=== PATIENT | male | born 1970 | race Hispanic/Latino ===

== ENCOUNTER 2016-07-17 02:49 | Emergency (ER) | payer SELFPAY ==
[2016-07-17 03:15] VITALS: BP 103/47
--- NOTE | 2016-07-17 03:58 | Emergency Department Report ---
ED Chest Pain HPI - General Chief Complaint: Dyspnea/Respdistress Stated Complaint: CHEST PAIN, DIFFICULTY IN BREATHING Time Seen by Provider: 07/17/16 03:08 Source: patient, EMS Mode of arrival: Stretcher Limitations: No Limitations - History of Present Illness Initial Comments: 46-year-old male with a past medical history of obesity, bipolar, and hypertension presents to the hospital complaining of chest pain this a.m. Pain started about 1:00 AM where he complained of chest tightness with associated shortness of breath.] The bedside reports that while waiting for ambulance to arrive patient seemed to be going on and out of consciousness. So she left arm discomfort reported. No reports of fever, wheezing, nausea, vomiting, or diaphoresis. Patient received aspirin and 2.5 albuterol in route. Patient reports that nonrebreather oxygen helps him feel better. Positive smoking. Denies previous cardiac workup. PMD: None Severity scale (0 -10): 5 - Related Data Home Medications Medication Instructions Recorded Confirmed Last Taken Atenolol [Tenormin] 100 mg PO DAILY 07/17/16 07/17/16 07/16/16 Citalopram [celeXA] 40 mg PO PRN 07/17/16 07/17/16 07/16/16 Allergies Allergy/AdvReac Type Severity Reaction Status Date / Time No Known Allergies Allergy Unverified 07/17/16 03:05 KRISTYN score - Kristyn Score Age > 65: (0) No Aspirin use within the Past 7 Days: (0) No 3 or more CAD Risk Factors: (0) No 2 or more Angina events in past 24 hrs: (1) Yes Known CAD with more than 50% Stenosis: (0) No Elevated Cardiac Markers: (0) No ST Deviation Greater than 0.5mm: (0) No KRISTYN Score: 1 ED Review of Systems ROS: Stated complaint: CHEST PAIN, DIFFICULTY IN BREATHING Other details as noted in HPI Comment: All other systems reviewed and negative Other: Constitutional: No fevers chills Eyes: No eye pain visual changes ENT: No ear pain or throat pain Neck: Denies pain Respiratory: Denies cough wheezing Cardiovascular: Denies palpitations GI: Denies abdominal pain, nausea, vomiting, diarrhea : Denies dysuria, urinary frequency, or urgency Musculoskeletal: Denies back pain, joint swelling Skin: Denies rash, lesions, erythema Neurologic: Denies headache, numbness, weakness Psychiatric: Denies suicidal ideation, hallucinations ED Past Medical Hx - Past Medical History Hx Hypertension: Yes Hx Psychiatric Treatment: Yes Additional medical history: Bipolar - Social History Smoking Status: Current Every Day Smoker Substance Use Type: None - Medications Home Medications: Home Medications Medication Instructions Recorded Confirmed Last Taken Type Atenolol [Tenormin] 100 mg PO DAILY 07/17/16 07/17/16 07/16/16 History Citalopram [celeXA] 40 mg PO PRN 07/17/16 07/17/16 07/16/16 History ED Physical Exam - General Limitations: No Limitations - Other Other exam information: General: No limitations, patient is alert in no acute distress Head exam: Atraumatic, normocephalic Eyes exam: Normal appearance, pupils equal reactive to light, extraocular movements intact ENT: Moist mucous membrane, normal oropharynx Neck exam: Normal inspection, full range of motion, no meningismus nontender Respiratory exam: Clear to auscultation bilateral, no wheezes, rales, crackles Cardiovascular: Normal rate and rhythm, normal heart sounds, mild lower sternal chest wall tenderness Abdomen: Soft, nondistended, and nontender, with normal bowel sounds, no rebound, or guarding Extremity: Full range of motion normal inspection no deformity, no calf tenderness or edema Back: Normal Inspection, full range of motion, no tenderness Neurologic: Alert, oriented x3, cranial nerves intact, no motor or sensory deficit Psychiatric: normal affect, normal mood Skin: Warm, dry, intact ED Course Vital Signs 07/17/16 07/17/16 03:05 03:14 Temperature 98.7 F Pulse Rate 98 H Respiratory 22 22 Rate Blood Pressure 103/47 [Left] O2 Sat by Pulse 100 100 Oximetry - Reevaluation(s) Reevaluation #1: 07/17/16 06:13 pt stable in ed Reevaluation #2: 07/17/16 06:14 received po K prior to leaving ED Medical Decision Making - Lab Data Result diagrams: 07/17/16 03:58 07/17/16 03:58 Lab Results 07/17/16 07/17/16 07/17/16 Range/Units 03:52 03:52 03:58 WBC (4.5-11.0) K/mm3 RBC (3.65-5.03) M/mm3 Hgb (11.8-15.2) gm/dl Hct (35.5-45.6) % MCV (84-94) fl MCH (28-32) pg MCHC (32-34) % RDW (13.2-15.2) % Plt Count (140-440) K/mm3 Lymph % (Auto) (13.4-35.0) % [place] % (Auto) (0.0-7.3) % Eos % (Auto) (0.0-4.3) % Baso % (Auto) (0.0-1.8) % Lymph # (1.2-5.4) K/mm3 [place] # (0.0-0.8) K/mm3 Eos # (0.0-0.4) K/mm3 Baso # (0.0-0.1) K/mm3 Seg Neutrophils % (40.0-70.0) % Seg Neutrophils # (1.8-7.7) K/mm3 PT (12.2-14.9) Sec. INR (0.87-1.13) D-Dimer (0-234) ng/mlDDU Sodium 134 L (137-145) mmol/L Potassium 3.1 L (3.6-5.0) mmol/L Chloride 91.7 L (98-107) mmol/L Carbon Dioxide 24 (22-30) mmol/L Anion Gap 21 mmol/L BUN 14 (9-20) mg/dL Creatinine 0.9 (0.8-1.5) mg/dL Estimated GFR > 60 ml/min BUN/Creatinine Ratio 15.55 % Glucose 119 H (75-100) mg/dL Calcium 9.3 (8.4-10.2) mg/dL Magnesium 1.9 (1.7-2.3) mg/dL Total Creatine Kinase 83 (55-170) units/L CK-MB (CK-2) 2.3 (0.0-4.0) ng/mL CK-MB (CK-2) Rel Index 2.7 (0-4) Troponin T < 0.010 (0.00-0.029) ng/mL NT-Pro-B Natriuret Pep 48.74 (0-450) pg/mL 07/17/16 07/17/16 Range/Units 03:58 03:58 WBC 9.6 (4.5-11.0) K/mm3 RBC 3.95 (3.65-5.03) M/mm3 Hgb 15.9 H (11.8-15.2) gm/dl Hct 44.9 (35.5-45.6) % MCV 114 H (84-94) fl MCH 40 H (28-32) pg MCHC 36 H (32-34) % RDW 13.3 (13.2-15.2) % Plt Count 129 L (140-440) K/mm3 Lymph % (Auto) 35.1 H (13.4-35.0) % [place] % (Auto) 9.7 H (0.0-7.3) % Eos % (Auto) 3.1 (0.0-4.3) % Baso % (Auto) 0.7 (0.0-1.8) % Lymph # 3.4 (1.2-5.4) K/mm3 [place] # 0.9 H (0.0-0.8) K/mm3 Eos # 0.3 (0.0-0.4) K/mm3 Baso # 0.1 (0.0-0.1) K/mm3 Seg Neutrophils % 51.4 (40.0-70.0) % Seg Neutrophils # 4.9 (1.8-7.7) K/mm3 PT 13.4 (12.2-14.9) Sec. INR 1.03 (0.87-1.13) D-Dimer 321.21 H (0-234) ng/mlDDU Sodium (137-145) mmol/L Potassium (3.6-5.0) mmol/L Chloride (98-107) mmol/L Carbon Dioxide (22-30) mmol/L Anion Gap mmol/L BUN (9-20) mg/dL Creatinine (0.8-1.5) mg/dL Estimated GFR ml/min BUN/Creatinine Ratio % Glucose (75-100) mg/dL Calcium (8.4-10.2) mg/dL Magnesium (1.7-2.3) mg/dL Total Creatine Kinase (55-170) units/L CK-MB (CK-2) (0.0-4.0) ng/mL CK-MB (CK-2) Rel Index (0-4) Troponin T (0.00-0.029) ng/mL NT-Pro-B Natriuret Pep (0-450) pg/mL - EKG Data -: EKG Interpreted by Me (sinus rhythm rate 62 posterior infarct age indeterminate) - EKG Data When compared to previous EKG there are: previous EKG unavailable - Radiology Data Radiology results: image reviewed (chest x-ray PA and lateral: No acute finding) - Medical Decision Making I informed the patient the plan was to admit him to the hospital for further cardiac workup. D-dimer was elevated. While in CT scanner it stopped working. Patient apparently got angry and stated that if the scan that the scanner worked for nigger but not for him. Then he returned to the ed and stormed out with his son. - Differential Diagnosis [place], unstable angina, PE, bronchitis Critical Care Time: No Critical care attestation.: If time is entered above; I have spent that time in minutes in the direct care of this critically ill patient, excluding procedure time. ED Disposition Clinical Impression: Chest pain, Dyspnea, Hypokalemia, Elevated d-dimer Disposition: ELOPED Is pt being admited?: No Condition: Stable Time of Disposition: 06:05 (left the department)
[2016-07-17 04:09] LABS: Basophils % (Auto) 0.7 % (0.0-1.8); Eosinophils % (Auto) 3.1 % (0.0-4.3); Hematocrit 44.9 % (35.5-45.6); Hemoglobin 15.9 gm/dl (11.8-15.2); Mean Corpuscular HGB Conc 36 % (32-34); Mean Corpuscular Hemoglobin 40 pg (28-32); Mean Corpuscular Volume 114 fl (84-94); Red Blood Count 3.95 M/mm3 (3.65-5.03); Red Cell Distribution Width 13.3 % (13.2-15.2); White Blood Count 9.6 K/mm3 (4.5-11.0)
[2016-07-17 04:12] LABS: Platelet Count 129 K/mm3 (140-440)
[2016-07-17 04:18] LABS: INR 1.03 (0.87-1.13)
[2016-07-17 04:22] LABS: BUN/Creatinine Ratio 15.55; Blood Urea Nitrogen 14 mg/dL (9-20); Calcium 9.3 mg/dL (8.4-10.2); Carbon Dioxide 24 mmol/L (22-30); Chloride 91.7 mmol/L (98-107); Glucose 119 mg/dL (75-100); Potassium 3.1 mmol/L (3.6-5.0); Sodium 134 mmol/L (137-145)
[2016-07-17 04:23] LABS: Creatine Kinase MB 2.3 ng/mL (0.0-4.0)
[2016-07-17 04:25] LABS: Anion Gap 21 mmol/L
[2016-07-17] MEDS ORDERED: K-DUR PO ONE (04:26)
--- NOTE | 2016-07-17 07:30 | XRay Report ---
ROUTINE CHEST, TWO VIEWS: HISTORY: Short of breath. No comparison. Heart size and pulmonary venous structures are at the upper limits of normal. The lungs are clear. No evidence for pneumonia, CHF or pneumothorax. The thoracic cage is intact. IMPRESSION: Borderline heart size and pulmonary vascular congestion. No CHF.
== END 2016-07-17 06:22 | disposition left against medical advice (07) ==
LOC: ED 02:49
DX: E87.6 Hypokalemia (principal); R79.1 Abnormal coagulation profile; R07.9 Chest pain, unspecified; R06.00 Dyspnea, unspecified; I10 Essential (primary) hypertension; F31.9 Bipolar disorder, unspecified; F17.200 Nicotine dependence, unspecified, uncomplicated
CPT/HCPCS: 36415; 71020; 80048; 82550; 82553; 83735; 83880; 84484; 85025; 85379; 85610; 93005; 93010

== ENCOUNTER 2019-05-28 16:34 | Emergency (ER) | payer SELFPAY ==
[2019-05-28] MEDS ORDERED: HALOPERIDOL LACTATE 5 MG/1 ML INJ IM PRN (17:15)
[2019-05-28] MEDS ORDERED: LORazepam 2 MG/ML VIAL IM PRN (17:15)
--- NOTE | 2019-05-28 17:16 | Emergency Department Report ---
<JEREMY HERR - Last Filed: 05/28/19 23:23> ED General Adult HPI - General Chief complaint: Psych Stated complaint: SI Time Seen by Provider: 05/28/19 17:00 Source: patient, family, EMS ( EMS documentation not available at time of chart dictation ), RN notes reviewed Mode of arrival: Stretcher Limitations: No Limitations - History of Present Illness Initial comments: This is a 48-year-old gentleman. This patient is not known to this provider previously. He is accompanied by his son who provides some collateral informa tion. He does not have a primary care doctor. Apparently an outpatient physician at the [facility] had prescribed him some outpatient Celexa. He appears to have a history of chronic pain and hydroadenitis , although, he did not know that he had hidradenitis. He is brought to the hospital by emergency medical services for overdose. Apparently his son contacted 911 because the patient reportedly took 10-12 tablets of Celexa, at, around 3:30 PM. The patient denies other ingestions. He endorses chronic pain but indicates that he has no new or different pain. He indicates no hallucinations. He states that he took the medicine to help control his chronic back pain. -: Sudden, hour(s) Improves with: none Worsens with: none - Related Data Home Medications Medication Instructions Recorded Confirmed Last Taken Atenolol [Tenormin] 100 mg PO DAILY 07/17/16 05/28/19 07/16/16 Citalopram [celeXA] 40 mg PO PRN 07/17/16 05/28/19 07/16/16 Chlorthalidone [Thalitone] 25 mg PO QDAY 05/28/19 05/28/19 Unknown Allergies Allergy/AdvReac Type Severity Reaction Status Date / Time No Known Allergies Allergy Unverified 07/17/16 03:05 ED Review of Systems Constitutional: denies: fever Cardiovascular: denies: syncope Gastrointestinal: denies: vomiting Genitourinary: denies: dysuria Musculoskeletal: back pain Skin: lesions Psychiatric: denies: auditory hallucinations, visual hallucinations, homicidal thoughts ED Past Medical Hx - Past Medical History Hx Hypertension: Yes Hx Psychiatric Treatment: Yes (depression, anxiety) Additional medical history: Bipolar, chronic back pain - Surgical History Additional Surgical History: back - Social History Smoking Status: Current Every Day Smoker Substance Use Type: Alcohol, Marijuana - Medications Home Medications: Home Medications Medication Instructions Recorded Confirmed Last Taken Type Atenolol [Tenormin] 100 mg PO DAILY 07/17/16 05/28/19 07/16/16 History Citalopram [celeXA] 40 mg PO PRN 07/17/16 05/28/19 07/16/16 History Chlorthalidone [Thalitone] 25 mg PO QDAY 05/28/19 05/28/19 Unknown History ED Physical Exam - General Limitations: No Limitations General appearance: alert, anxious, obese - Head Head exam: Present: atraumatic, normocephalic - Eye Eye exam: Present: normal appearance, PERRL, EOMI. Absent: nystagmus - ENT ENT exam: Present: normal exam, normal orophraynx, mucous membranes moist, normal external ear exam - Neck Neck exam: Present: normal inspection, full ROM. Absent: tenderness, meningismus - Respiratory Respiratory exam: Present: normal lung sounds bilaterally. Absent: respiratory distress - Cardiovascular Cardiovascular Exam: Present: regular rate, normal rhythm, normal heart sounds. Absent: bradycardia, tachycardia, irregular rhythm, systolic murmur, diastolic murmur, rubs, gallop - GI/Abdominal GI/Abdominal exam: Present: soft. Absent: distended, tenderness, guarding, rebound, rigid - Rectal Rectal exam: Present: deferred - Extremities Exam Extremities exam: Present: full ROM (numerous chronic-appearing lesions noted on the anterior abdominal wall, upper and lower extremities, consistent with chronic hidradenitis. There is no pus, streaking or discharge at this time.), other (2+ pulses noted in the bilateral upper, lower extremities. There is no long bone tenderness. Musculoskeletal compartments are soft. The pelvis is st able.). Absent: tenderness, calf tenderness - Back Exam Back exam: Present: normal inspection, full ROM. Absent: tenderness, CVA tenderness (R), CVA tenderness (L), paraspinal tenderness, vertebral tenderness - Neurological Exam Neurological exam: Present: alert, other (there is no facial droop. The tongue is midline. Extraocular movements are intact bilaterally. Patient speaking in full complete sentences. Shoulder shrug is intact bilaterally. Hearing is grossly intact bilaterally. Visual acuity intact to finger counting and color perception at a close distance. 5/5 strength 4 extremities. Sensation intact to light touch in 4 extremities.). Absent: motor sensory deficit - Psychiatric Psychiatric exam: Present: anxious - Skin Skin exam: Present: warm, dry, intact, normal color ED Course - Reevaluation(s) Reevaluation #1: 05/28/19 18:42 Differential diagnosis, including but not limited to: Overdose, mood disorder, suicidality, medical clearance for psychiatric placement Assessment and plan: 48-year-old gentleman who presents more than one hour after overdose, therefore, not a charcoal candidate. He endorses chronic medical pain, but otherwise, does not endorse any new, worsened or different symptoms. Screening laboratory studies are reviewed and appreciated. EKG is pending at this time. teletypesetter monitor ordered, 1013 ordered, psychiatric consultation requested, we will discuss with the [place] [facility]. We will observe the patient in the emergency room. Anticipate medical clearance for psychiatric placement. He can follow-up with an outpatient primary care doctor for chronic hidradenitis, and chronic back pain. These entities do not represent an emergency medical conditions. Reevaluation #2: 05/28/19 18:59 Contacted making at the [place] [facility]. Advises that activated charcoal may be given within 4 hours of Celexa ingestion. Recommends that of charcoal is given, 8 hours of observation, if charcoal not given, minimum 11 hours observation. Also recommended supportive care which we have anticipated. Patient will be ordered for charcoal, he'll be placed on a security monitor, repeat EKG also ordered, to assess for intervals. 05/28/19 19:00 Reevaluation #3: 05/28/19 23:23 Patient observed for about 7 hours and department without clinical decompensation. Repeat EKG appears to be unremarkable. Patient has had acute on chronic back pain, therefore, ordered for pain medication. He has one hour left in period Of observation. No arrhythmias noted. ED Medical Decision Making - Lab Data Result diagrams: 05/28/19 17:27 05/28/19 17:27 Vital Signs 05/28/19 17:36 Temperature 97.9 F Pulse Rate 66 Respiratory 18 Rate Blood Pressure 139/94 [Right] O2 Sat by Pulse 96 Oximetry Lab Results 05/28/19 05/28/19 05/28/19 Range/Units 17:27 17:27 17:27 WBC 12.3 H (4.5-11.0) K/mm3 RBC 3.84 (3.65-5.03) M/mm3 Hgb 15.4 H (11.8-15.2) gm/dl Hct 41.5 (35.5-45.6) % MCV 108 H (84-94) fl MCH 40 H (28-32) pg MCHC 37 H (32-34) % RDW 13.4 (13.2-15.2) % Plt Count 160 (140-440) K/mm3 Sodium 137 (137-145) mmol/L Potassium 4.3 (3.6-5.0) mmol/L Chloride 101.3 (98-107) mmol/L Carbon Dioxide 23 (22-30) mmol/L Anion Gap 17 mmol/L BUN 20 (9-20) mg/dL Creatinine 0.8 (0.8-1.5) mg/dL Estimated GFR > 60 ml/min BUN/Creatinine Ratio 25 % Glucose 81 (75-100) mg/dL Calcium 9.0 (8.4-10.2) mg/dL Magnesium 2.40 H (1.7-2.3) mg/dL Total Bilirubin 0.80 (0.1-1.2) mg/dL AST 28 (5-40) units/L ALT 21 (7-56) units/L Alkaline Phosphatase 59 (35-129) units/L Total Creatine Kinase 111 (55-170) units/L Total Protein 7.5 (6.3-8.2) g/dL Albumin 3.7 L (3.9-5) g/dL Albumin/Globulin Ratio 1.0 % Salicylates < 0.3 L (2.8-20.0) mg/dL Acetaminophen (10.0-30.0) ug/mL Plasma/Serum Alcohol (0-0.07) % 05/28/19 05/28/19 Range/Units 17:27 17:27 WBC (4.5-11.0) K/mm3 RBC (3.65-5.03) M/mm3 Hgb (11.8-15.2) gm/dl Hct (35.5-45.6) % MCV (84-94) fl MCH (28-32) pg MCHC (32-34) % RDW (13.2-15.2) % Plt Count (140-440) K/mm3 Sodium (137-145) mmol/L Potassium (3.6-5.0) mmol/L Chloride (98-107) mmol/L Carbon Dioxide (22-30) mmol/L Anion Gap mmol/L BUN (9-20) mg/dL Creatinine (0.8-1.5) mg/dL Estimated GFR ml/min BUN/Creatinine Ratio % Glucose (75-100) mg/dL Calcium (8.4-10.2) mg/dL Magnesium (1.7-2.3) mg/dL Total Bilirubin (0.1-1.2) mg/dL AST (5-40) units/L ALT (7-56) units/L Alkaline Phosphatase (35-129) units/L Total Creatine Kinase (55-170) units/L Total Protein (6.3-8.2) g/dL Albumin (3.9-5) g/dL Albumin/Globulin Ratio % Salicylates (2.8-20.0) mg/dL Acetaminophen < 5.0 L (10.0-30.0) ug/mL Plasma/Serum Alcohol < 0.01 (0-0.07) % - EKG Data -: EKG Interpreted by [facility] EKG shows normal: sinus rhythm Rate: normal - EKG Data When compared to previous EKG there are: previous EKG unavailable ED Disposition Clinical Impression: Medical clearance for psychiatric admission, Chronic back pain, Overdose Disposition: DC-01 TO HOME OR SELFCARE Is pt being admited?: No Does the pt Need Aspirin: No Condition: Stable Referrals: [facility] [Outside] - 3-5 Days <NATHANIEL PAZ - Last Filed: 05/29/19 03:54> ED Course - Reevaluation(s) Reevaluation #4: 05/29/19 01:00 Patient is medically clear for mental health evaluation. ED Medical Decision Making - Lab Data Result diagrams: 05/28/19 17:27 05/28/19 17:27 <KATHARINE CIFUENTES - Last Filed: 05/31/19 14:47> ED Review of Systems ROS: Stated complaint: SI Other details as noted in HPI ED Course Vital Signs 05/28/19 05/28/19 05/28/19 17:36 18:58 19:30 Temperature 97.9 F 98.4 F Pulse Rate 66 68 70 Respiratory 18 15 16 Rate Blood Pressure Blood Pressure 139/94 163/84 164/82 [Right] O2 Sat by Pulse 96 96 99 Oximetry 05/29/19 05/29/19 05/29/19 02:10 07:00 11:04 Temperature 98.0 F 98.2 F Pulse Rate 74 68 Respiratory 20 18 Rate Blood Pressure 169/83 Blood Pressure 189/94 163/80 [Right] O2 Sat by Pulse 97 95 Oximetry 05/29/19 05/30/19 05/30/19 13:00 02:51 07:00 Temperature 98.3 F 98.0 F 98.8 F Pulse Rate 57 L 73 57 L Respiratory 17 20 17 Rate Blood Pressure Blood Pressure 169/78 112/83 164/68 [Right] O2 Sat by Pulse 94 97 97 Oximetry 05/30/19 05/30/19 05/30/19 10:49 13:00 13:51 Temperature 98.9 F 99.3 F Pulse Rate 86 50 L 51 L Respiratory 16 17 Rate Blood Pressure 140/84 Blood Pressure 127/69 141/77 [Right] O2 Sat by Pulse 98 98 Oximetry 05/30/19 05/31/19 05/31/19 21:45 08:57 10:00 Temperature 98.3 F 98.6 F Pulse Rate 58 L 58 L 58 L Respiratory 16 14 Rate Blood Pressure 128/65 Blood Pressure 144/75 128/65 [Right] O2 Sat by Pulse 97 98 Oximetry ED Medical Decision Making - Lab Data Result diagrams: 05/28/19 17:27 05/28/19 17:27 - Medical Decision Making I have reviewed documentation by our psychiatric team, 1013 is rescinded. Patient is cleared for discharge. He will follow-up at the [facility]. I personally spoke with patient. He did not have any questions or concerns. Critical care attestation.: If time is entered above; I have spent that time in minutes in the direct care of this critically ill patient, excluding procedure time. ED Disposition Is pt being admited?: No Does the pt Need Aspirin: No
[2019-05-28 17:52] LABS: Mean Corpuscular HGB Conc 37 % (32-34); Mean Corpuscular Volume 108 fl (84-94); Platelet Count 160 K/mm3 (140-440); Red Blood Count 3.84 M/mm3 (3.65-5.03); Red Cell Distribution Width 13.4 % (13.2-15.2)
[2019-05-28 17:57] LABS: Hematocrit 41.5 % (35.5-45.6); Hemoglobin 15.4 gm/dl (11.8-15.2)
[2019-05-28 17:59] LABS: Alanine Aminotransferase 21 units/L (7-56); Albumin 3.7 g/dL (3.9-5); BUN/Creatinine Ratio 25; Blood Urea Nitrogen 20 mg/dL (9-20); Hemolysis Index 12
[2019-05-28] MEDS ORDERED: charcoal activated SOLUTION 25 GM/120 ML PO ONE (18:59)
[2019-05-28] MEDS: IBUPROFEN 600 MG TAB PO PRN (21:33)
[2019-05-28 21:41] LABS: Bilirubin,Urine NEG (Negative); Blood,Urine NEG (Negative); Color,Urine Yellow (Yellow); Mucus,Urine FEW /HPF; Protein,Urine <15 mg/dL mg/dL (Negative)
[2019-05-28] MEDS ORDERED: HYDROmorphone 1 MG/1 ML INJ IM ONE (22:41)
[2019-05-28] MEDS ORDERED: HYDROmorphone 1 MG/1 ML INJ ONE (22:44)
[2019-05-29] MEDS: IBUPROFEN 600 MG TAB PO PRN ×2 (11:04→18:06)
[2019-05-29] MEDS: atenoloL 50 MG TAB PO SCH (11:04)
[2019-05-29 11:44] LABS: Amphetamine Screen,Urine PRESUMPTIVE NEGATIVE; Benzodiazepines Screen,Urine PRESUMPTIVE NEGATIVE; Cocaine Screen,Urine PRESUMPTIVE NEGATIVE; Methadone Screen,Urine PRESUMPTIVE NEGATIVE; Opiate Screen,Urine PRESUMPTIVE NEGATIVE
[2019-05-29 12:07] LABS: Cannabinoid Screen,Urine PRESUMPTIVE POSITIVE
--- NOTE | 2019-05-29 12:26 | Consultation ---
History of Present Illness - Reason for Consult Consult date: 05/29/19 Reason for consult: Mental Health Evaluation Requesting physician: JEREMY HERR - Chief Complaint Chief complaint: "I only took the pills to get my son's attention" - History of Present Psychiatric Illness 48 y.o. white male who presented to ER for intentional overdose of several Celexa pills. Today the patient was calm and cooperative during the assessment. He stated that he ingested 10 Celexa pills prior to his ER visit because he felt like his son was leaving him. He stated that he wanted to get attention from his son because he felt like they need each other. The patient stated that he has lower extremity weakness with chronic back pain and need his son's assistance. The patient was adamant that he didn't ingested the pills to kill himself. He denies a previous suicide attempt when asked. Per the patient's son Kalin Ho who was at the bedside, he stated that his father does need assistance at home with his ADL's. He stated that he father have never tried to commit suicide in the past. The patient denies SI/HI's and AVH's. He denies erratic sleep and a poor appetite. He denies being depressed or any other mood/psychotic do. He denies recreational drug use and alcohol consumption (etoh). Medications and Allergies Allergies Allergy/AdvReac Type Severity Reaction Status Date / Time No Known Allergies Allergy Unverified 07/17/16 03:05 Home Medications Medication Instructions Recorded Confirmed Last Taken Type Atenolol [Tenormin] 100 mg PO DAILY 07/17/16 05/28/19 07/16/16 History Citalopram [celeXA] 40 mg PO PRN 07/17/16 05/28/19 07/16/16 History Chlorthalidone [Thalitone] 25 mg PO QDAY 05/28/19 05/28/19 Unknown History Active Meds: Active Medications Acetaminophen (Tylenol) 650 mg PO Q6HR PRN PRN Reason: PAIN Atenolol (Tenormin) 100 mg PO DAILY [facility] Last Admin: 05/29/19 11:04 Dose: 100 mg Documented by: Haloperidol Lactate (Haldol) 5 mg IM Q6HR PRN PRN Reason: Agitation Ibuprofen (Ibuprofen) 600 mg PO Q6HR PRN PRN Reason: Pain , Severe (7-10) Last Admin: 05/29/19 11:04 Dose: 600 mg Documented by: Lorazepam (Ativan) 2 mg IM Q4HR PRN PRN Reason: Agitation Last Admin: 05/28/19 20:59 Dose: 2 mg Documented by: Past psychiatric history - Past Medical History Past Medical History: other (Chronic Back pain) Past Surgical History: Other (Back Surgery) - past Psychiatric treatment and history psychiatric treatment history: Hx of Stress DO per the patient. Denies a fam psy hx. - Social History Social history: lives with family Mental Status Exam - Vital signs Last Vital Signs Temp 98.2 F 05/29/19 07:00 Pulse 68 05/29/19 07:00 Resp 18 05/29/19 07:00 BP 169/83 05/29/19 11:04 Pulse Ox 95 05/29/19 07:00 - Exam Narrative exam: MSE: Appearance: calm, cooperative Behavior: regular eye contact Speech: regular rate and tone Mood:: "okay" Affect: congruent to mood Thought Process: circumstantial Thought Content: denies SI/HI's and AVH's Motor Activity: ambulatory Cognition: A/O x3 Insight: variable to fair Judgment: poor Results Result Diagrams: 05/28/19 17:27 05/28/19 17:27 Abnormal lab results 05/28/19 05/28/19 05/28/19 Range/Units 17:27 17:27 17:27 WBC 12.3 H (4.5-11.0) K/mm3 Hgb 15.4 H (11.8-15.2) gm/dl MCV 108 H (84-94) fl MCH 40 H (28-32) pg MCHC 37 H (32-34) % Magnesium 2.40 H (1.7-2.3) mg/dL Albumin 3.7 L (3.9-5) g/dL Salicylates < 0.3 L (2.8-20.0) mg/dL Acetaminophen (10.0-30.0) ug/mL 05/28/19 Range/Units 17:27 WBC (4.5-11.0) K/mm3 Hgb (11.8-15.2) gm/dl MCV (84-94) fl MCH (28-32) pg MCHC (32-34) % Magnesium (1.7-2.3) mg/dL Albumin (3.9-5) g/dL Salicylates (2.8-20.0) mg/dL Acetaminophen < 5.0 L (10.0-30.0) ug/mL All other labs normal. Assessment and Plan Assessment and plan: Impression: MDD, single episode. Intentional Overdose. Today the patient was calm and cooperative during the assessment. QTc 492. DDx: R/O Bipolar DO, Acute Stress DO, Somatic Symptom DO Recommendation/Plan: Continue 1013. Hold SSRI's at this time QTc 492. Discussed generalized coping skills with the patient, he verbalized understanding. Dispo: The patient was referred to inpatient psy services. Staffed with Dr Diamond Mcknight.
[2019-05-29] MEDS: ACETAMINOPHEN 325 MG TAB PO PRN (23:22)
[2019-05-30] MEDS: atenoloL 50 MG TAB PO SCH (10:49)
--- NOTE | 2019-05-30 12:49 | Progress Note ---
Subjective - Reason for Consult Consult date: 05/30/19 Reason for consult: Psychiatry Follow-up - Chief Complaint Chief complaint: "I made a mistake" 48 y.o. white male who presented to ER for intentional overdose of several Celexa pills. Today the patient was calm and cooperative during the assessment. The patient was adamant that his decision to ingest the Celexa pills was not safe. He stated, "I should have handled the situation in a different way." The patient is concern about possibly being homeless next month. He denies SI/HI's and AVH's. Mental Status Exam - Vital signs Last Vital Signs Temp 98.8 F 05/30/19 07:00 Pulse 86 05/30/19 10:49 Resp 17 05/30/19 07:00 BP 140/84 05/30/19 10:49 Pulse Ox 97 05/30/19 07:00 - Exam Narrative exam: MSE: Appearance: calm, cooperative Behavior: regular eye contact Speech: regular rate and tone Mood:: "okay" Affect: congruent to mood Thought Process: circumstantial Thought Content: denies SI/HI's and AVH's Motor Activity: ambulatory Cognition: A/O x3 Insight: variable to fair Judgment: variable to fair Assessment and Plan Impression: MDD, single episode. Intentional Overdose. Today the patient was calm and cooperative during the assessment. QTc 492. DDx: R/O Bipolar DO, Acute Stress DO, Somatic Symptom DO Recommendation/Plan: Reevaluate the patient's 1013 in 24 hours. Hold SSRI's at this time QTc 492. Discussed generalized coping skills with the patient, he verbalized understanding. Dispo: If the patient's 1013 is rescinded in 24 hours, he can follow up with [facility] for outpatient psy services. Staffed with Dr Diamond Mcknight.
[2019-05-30] MEDS ORDERED: NICOTINE 21 MG/24 HR PATCH TD ONE (15:02)
[2019-05-30] MEDS: ACETAMINOPHEN 325 MG TAB PO PRN (17:22)
[2019-05-31 08:58] VITALS: BP 128/65
[2019-05-31] MEDS: atenoloL 50 MG TAB PO SCH (10:00)
--- NOTE | 2019-05-31 13:13 | Progress Note ---
Subjective - Reason for Consult Consult date: 05/31/19 Reason for consult: Mental health evaluation Requesting physician: JEREMY HERR - Chief Complaint Chief complaint: "I made a mistake" 48 y.o. white male who presented to ER for intentional overdose of several Celexa pills. Today the patient was calm and cooperative during the assessment. The patient was adamant that his decision to ingest the Celexa pills was not safe. He stated, "I should have handled the situation in a different way." The patient is concern about possibly being homeless next month. Patient is with his son at bedside. Collababorative information reports behavioral changes when he told his Father he was going to move out and now 2 days later he appears to be at baseline per son. He denies SI/HI's and AVH's. Mental Status Exam - Vital signs Last Vital Signs Temp 98.6 F 05/31/19 08:57 Pulse 58 L 05/31/19 10:00 Resp 14 05/31/19 08:57 BP 128/65 05/31/19 10:00 Pulse Ox 98 05/31/19 08:57 - Exam Orientation: time, place, person Affect: anxious Mood: congruent with affect, anxious Thought Process: Circumstantial Perceptions: none Speech: normal rate and pattern Concentration: distractible Motor activity: normal Level of consciousness: alert Memory: Intact Interaction: cooperative Assessment and Plan Impression: MDD, single episode. Intentional Overdose. Today the patient was calm and cooperative during the assessment. QTc 492. DDx: R/O Bipolar DO, Acute Stress DO, Somatic Symptom DO Recommendation/Plan: Patient is stable, and has improved. We believe patient is ready for discharge at this time. We recommend he follow-up with outpatient services. We reviewed coping skills with patient and he and son verbalized understanding. Dispo: If the patient's 1013 is rescinded in 24 hours, he can follow up with [facility] for outpatient psy services. Staffed with Dr Diamond Mcknight.
== END 2019-05-31 15:00 | disposition home or self-care (01) ==
LOC: ED 16:34
DX: T43.222A Poisoning by selective serotonin reuptake inhibitors, intentional self-harm, initial encounter (principal); G89.29 Other chronic pain; M54.9 Dorsalgia, unspecified; F31.9 Bipolar disorder, unspecified; F41.9 Anxiety disorder, unspecified; F17.200 Nicotine dependence, unspecified, uncomplicated; F12.10 Cannabis abuse, uncomplicated; Y92.89 Other specified places as the place of occurrence of the external cause
CPT/HCPCS: 36415; 80053; 80307; 81001; 82550; 83735; 85027; 93005; 93010; 96372; 99285; J1170; J2060; 80320; G0480